=== PATIENT | female | born 1960 ===

== ENCOUNTER 2017-06-05 07:06 | Inpatient (IN) | payer BC ==
[2017-06-05 07:07] VITALS: BMI 28.7
[2017-06-05] MEDS ORDERED: Sodium Chloride 0.9% 1,000 ML IV STA (07:44)
--- NOTE | 2017-06-05 07:48 | ED PDOC ---
HPI: General Adult Time Seen by Provider: 06/05/17 07:14 Chief Complaint (Nursing): High Blood Pressure Chief Complaint (Provider): vertigo History Per: Patient History/Exam Limitations: no limitations Additional Complaint(s): Joy Doyle is a 56 year old female, with a previous medical history of hypertension, who presents to the ED with complaints of 2 episodes of vertigo which occurred this morning while laying flat associated with head pressure and nausea. Patient denies any chest pain, shortness of breath, numbness or tingling. She reports taking her lisinopril and metoprolol this morning. PMD: none provided Past Medical History Reviewed: Historical Data, Nursing Documentation, Vital Signs Vital Signs: Last Vital Signs Temp 97.7 F 06/05/17 07:33 Pulse 81 06/05/17 07:33 Resp 18 06/05/17 07:33 BP 167/90 H 06/05/17 07:33 Pulse Ox 98 06/05/17 14:38 - Medical History PMH: Depression, HTN - Family History Family History: States: Unknown Family Hx - Home Medications Home Medications: Ambulatory Orders Medication Instructions Recorded Lisinopril/Hydrochlorothiazide 1 tab PO DAILY 05/12/14 [Lisinopril-Hctz 20-25 mg Tab] Metoprolol Succinate [Toprol XL] 25 mg PO DAILY 06/05/17 - Allergies Allergies/Adverse Reactions: Allergies Allergy/AdvReac Type Severity Reaction Status Date / Time No Known Allergies Allergy Verified 01/24/17 03:30 Review of Systems ROS Statement: Except As Marked, All Systems Reviewed And Found Negative Cardiovascular: Negative for: Chest Pain Respiratory: Negative for: Shortness of Breath Gastrointestinal: Positive for: Nausea Neurological: Positive for: Dizziness. Negative for: Numbness Physical Exam - Reviewed Nursing Documentation Reviewed: Yes Vital Signs Reviewed: Yes - Physical Exam Appears: Positive for: Well, Non-toxic, No Acute Distress Head Exam: Positive for: ATRAUMATIC, NORMAL INSPECTION, NORMOCEPHALIC Skin: Positive for: Normal Color, Warm, Dry Eye Exam: Positive for: Normal appearance, EOMI, PERRL. Negative for: Nystagmus ENT: Positive for: Normal ENT Inspection Neck: Positive for: Normal, Painless ROM, Supple Cardiovascular/Chest: Positive for: Regular Rate, Rhythm Respiratory: Positive for: CNT, Normal Breath Sounds Gastrointestinal/Abdominal: Positive for: Normal Exam, Bowel Sounds, Soft. Negative for: Tenderness Back: Positive for: Normal Inspection Extremity: Positive for: Normal ROM Neurologic/Psych: Positive for: Alert, material handling technician II-XII (intact), Oriented, Other ( finger to nose intact ). Negative for: Motor/Sensory Deficits - Laboratory Results Result Diagrams: 06/05/17 08:15 06/05/17 11:31 - ECG Interpretation Of ECG: NSR @ 63, no ST-T changes. O2 Sat by Pulse Oximetry: 98 (RA) Pulse Ox Interpretation: Normal - Physician Consult Information Time Consulting Physican Contacted: 11:50 Physician Contacted: Horacio Shirley Outcome Of Conversation: Case discussed, agrees with CTA head, admit to r/o ischemic event. Medical Decision Making Medical Decision Making: Initial Impression: Vertigo Initial Plan: * CT head w/o contrast * EKG * labs * urine dipstick * urinalysis * antivert 50 mg PO * IV NS 1000 ml at 125 ml/hr * zofran 4 mg IV * accu-check * reevaluation Time: 9:45 CT Head FINDINGS: HEMORRHAGE: No intracranial hemorrhage. BRAIN: No mass effect or edema. No atrophy or chronic microvascular ischemic changes. VENTRICLES: Unremarkable. No hydrocephalus. CALVARIUM: Unremarkable. PARANASAL SINUSES: Unremarkable as visualized. No significant inflammatory changes. MASTOID AIR CELLS: Unremarkable as visualized. No inflammatory changes. OTHER FINDINGS: None. IMPRESSION: Normal CT of the Head. Time: 14:10 CT CHEST FINDINGS: INTERNAL CEREBRAL ARTERIES: Unremarkable. The skull base, petrous, cavernous and supraclinoid segments are bilaterally widely patient. ANTERIOR CEREBRAL ARTERIES: Unremarkable. A1 and A2 segments are widely patent. Smaller distal branches unremarkable, as visualized. MIDDLE CEREBRAL ARTERIES: Unremarkable. M1 and M2 segments are widely patent. Perisylvian branches grossly symmetric. POSTERIOR CIRCULATION: Basilar Artery: Unremarkable. Distal Vertebral Arteries: Unremarkable. Posterior Cerebral Arteries: Unremarkable. Posterior Inferior Cerebellar Arteries: Neck clearly identified in this exam. ANEURYSM/ VASCULAR MALFORMATIONS: None. OTHER FINDINGS: None. IMPRESSION: Unremarkable CT Angiography of the Brain. Scribe Attestation: Documented by Gina De La O, acting as a scribe for Gina Neal MD. Provider Scribe Attestation: All medical record entries made by the Scribe were at my direction and personally dictated by me. I have reviewed the chart and agree that the record accurately reflects my personal performance of the history, physical exam, medical decision making, and the department course for this patient. I have also personally directed, reviewed, and agree with the discharge instructions and disposition. Disposition - Clinical Impression Clinical Impression: Vertigo - Patient ED Disposition Is Patient to be Admitted: Yes - Disposition Disposition Time: 14:24 Condition: STABLE - Pt Status Changed To: Hospital Disposition Of: Inpatient - Admit Certification Admit to Inpatient:: After my assessment, the patient will require hospitalization for at least two midnights. This is because of the severity of symptoms shown, intensity of services needed, and/or the medical risk in this patient being treated as an outpatient. - POA Present On Arrival: None
[2017-06-05 08:25] LABS: BASO # 0.1 K/uL (0.0-0.2); BASO % 0.7 % (0.0-2.0); EOS # 0.2 K/uL (0.0-0.7); EOS % 2.2 % (0.0-4.0); HEMATOCRIT 39.7 % (34.0-47.0); LYMPH # 2.6 K/uL (1.0-4.3); LYMPH % 30.8 % (20.0-40.0); MEAN CELL VOLUME 88.1 fl (81.0-99.0); MEAN CORPUSCULAR HEMOGLOBIN 29.7 pg (27.0-31.0); MEAN CORPUSCULAR HGB CONC 33.7 g/dL (33.0-37.0); MEAN PLATELET VOLUME 8.3 fl (7.2-11.7); MONO # 0.6 K/uL (0.0-0.8); MONO % 6.9 % (0.0-10.0); NEUT # 5.1 K/uL (1.8-7.0); NEUT % 59.4 % (50.0-75.0); NRBC % 0.2 % (0.0-0.0); RED CELL DISTRIBUTION WIDTH 13.3 % (11.5-14.5); WHITE BLOOD COUNT 8.5 K/uL (4.8-10.8)
[2017-06-05 08:39] LABS: RBC URINE 22 /hpf (0-3); URINE BACTERIA OCC (<OCC); URINE BILIRUBIN NEGATIVE (NEGATIVE); URINE BLOOD MODERATE (NEGATIVE); URINE COLOR YELLOW (YELLOW); URINE GLUCOSE (UA) NEG (Normal); URINE KETONE NEGATIVE (NEGATIVE); URINE LEUKOCYTE ESTERASE NEG Leu/uL (Negative); URINE PROTEIN 100 mg/dL (NEGATIVE); URINE UROBILINOGEN 0.2-1.0 mg/dL (0.2-1.0); WBC URINE 3 /hpf (0-5)
--- NOTE | 2017-06-05 09:46 | CT ---
PROCEDURE: CT HEAD WITHOUT CONTRAST. HISTORY: Vertigo COMPARISON: None available. TECHNIQUE: Axial computed tomography images were obtained through the head/brain without intravenous contrast. Radiation dose: Total exam DLP = 864.44 mGy-cm. This CT exam was performed using one or more of the following dose reduction techniques: Automated exposure control, adjustment of the mA and/or kV according to patient size, and/or use of iterative reconstruction technique. FINDINGS: HEMORRHAGE: No intracranial hemorrhage. BRAIN: No mass effect or edema. No atrophy or chronic microvascular ischemic changes. VENTRICLES: Unremarkable. No hydrocephalus. CALVARIUM: Unremarkable. PARANASAL SINUSES: Unremarkable as visualized. No significant inflammatory changes. MASTOID AIR CELLS: Unremarkable as visualized. No inflammatory changes. OTHER FINDINGS: None. IMPRESSION: Normal CT of the Head.
[2017-06-05 12:44] LABS: ALB/GLOB RATIO 1.3 (1.0-2.1); ALKALINE PHOSPHATASE 74 U/L (38-126); ALT/SGPT 25 U/L (9-52); AST/SGOT 24 U/L (14-36); BILIRUBIN,TOTAL 0.6 mg/dl (0.2-1.3); BLOOD UREA NITROGEN 11 mg/dl (7-17); CALCIUM 9.6 mg/dL (8.4-10.2); CHLORIDE 102 mmol/L (98-107); GFR AFRICAN-AMERICAN > 60; GLUCOSE,RANDOM 90 mg/dL (65-105); POTASSIUM 3.7 MMOL/L (3.6-5.0); SODIUM 143 mmol/l (132-148); TOTAL PROTEIN 7.7 G/DL (6.3-8.2)
[2017-06-05] MEDS ORDERED: Iodixanol 320 MG/ML 100 ML BOTTLE IV ONE (13:02)
[2017-06-05] MEDS ORDERED: Sodium Chloride 0.9% 50 ML IV ONE (13:02)
[2017-06-05 13:14] LABS: CARBON DIOXIDE 24 mmol/L (22-30)
--- NOTE | 2017-06-05 14:12 | CT ---
PROCEDURE: CT Angiography of the Brain. HISTORY: New onset vertigo COMPARISON: None available. TECHNIQUE: CT angiography of the intracranial arteries was performed. Coronal and sagittal maximum intensity projection reformated images were generated. Contrast dose: Visipaque 320, 90 cc. Total radiation dose DLP: 1086.[address] exam was performed using one or more of the following dose reduction techniques: Automated exposure control, adjustment of the mA and/or kV according to patient size, and/or use of iterative reconstruction technique. FINDINGS: INTERNAL CEREBRAL ARTERIES: Unremarkable. The skull base, petrous, cavernous and supraclinoid segments are bilaterally widely patient. ANTERIOR CEREBRAL ARTERIES: Unremarkable. A1 and A2 segments are widely patent. Smaller distal branches unremarkable, as visualized. MIDDLE CEREBRAL ARTERIES: Unremarkable. M1 and M2 segments are widely patent. Perisylvian branches grossly symmetric. POSTERIOR CIRCULATION: Basilar Artery: Unremarkable. Distal Vertebral Arteries: Unremarkable. Posterior Cerebral Arteries: Unremarkable. Posterior Inferior Cerebellar Arteries: Neck clearly identified in this exam. ANEURYSM/ VASCULAR MALFORMATIONS: None. OTHER FINDINGS: None. IMPRESSION: Unremarkable CT Angiography of the Brain.
--- NOTE | 2017-06-05 15:54 | CP.PCM.CON ---
History of Present Illness - History of Present Illness History of Present Illness: Mrs. Doyle is a 56-year-old woman with a past medical history of hypertension , who woke up this morning with a feeling of nausea and noted that the room was spinning. She felt "dizzy" and had neck pain at the base of her skull in the occipital region. The neck pain and headache persisted and it felt severe with a throbbing/pulsating quality. She presented to the ED, where her initial BP was 167/90 mm Hg. Currently, the patient still feels dizzy despite fluids and meclizine. She states that the dizziness is worse when she looks to the right. Review of Systems - Review of Systems All systems: reviewed and no additional remarkable complaints except Past Patient History - Past Social History Smoking Status: Never Smoked - CARDIAC Hx Hypertension: Yes - MUSCULOSKELETAL/RHEUMATOLOGICAL Hx Falls: No - PSYCHIATRIC Hx Depression: Yes - SURGICAL HISTORY Hx Surgeries: Yes Hx Tubal Ligation: Yes - ANESTHESIA Hx Anesthesia: Yes Meds Allergies/Adverse Reactions: Allergies Allergy/AdvReac Type Severity Reaction Status Date / Time No Known Allergies Allergy Verified 01/24/17 03:30 Physical Exam - Constitutional Appears: Well - Head Exam Head Exam: ATRAUMATIC, NORMAL INSPECTION, NORMOCEPHALIC - Eye Exam Eye Exam: EOMI, Normal appearance, PERRL - ENT Exam ENT Exam: Mucous Membranes Moist, Normal Exam - Neck Exam Neck exam: Positive for: Tenderness Additional comments: Point tenderness at the right occipital region above the cervical portion to the right. - Respiratory Exam Respiratory Exam: Clear to Auscultation Bilateral, NORMAL BREATHING PATTERN - Cardiovascular Exam Cardiovascular Exam: REGULAR RHYTHM, +S1, +S2 - GI/Abdominal Exam GI & Abdominal Exam: Normal Bowel Sounds, Soft. absent: Tenderness - Rectal Exam Rectal Exam: Deferred - Extremities Exam Extremities exam: Positive for: normal inspection - Back Exam Back exam: NORMAL INSPECTION - Neurological Exam Neurological exam: Alert, CN II-XII Intact, Normal Gait, Oriented x3, Reflexes Normal - Expanded Neurological Exam Expanded Cranial nerves: EOM's Intact: Normal, Gag Reflex: Normal, Nystagmus: Normal Ataxia: No Cerebellar Function: Finger to Nose: Normal, Heel to Casey: Normal Upper motor neuron: Pronator Drift: Normal Sensory exam: Lower Extremity Light Touch: Normal, Lower Extremity Pin Prick: Normal, Upper Extremity Light Touch: Normal, Upper Extremity Pin Prick: Normal Neuro motor strength exam: Left Upper Extremity: 5, Right Upper Extremity: 5, Left Lower Extremity: 5, Right Lower Extremity: 5 DTR: Achilles Tendon Left: 2+, Achilles Tendon Right: 2+, Bicep Left: 2+, Bicep Right: 2+, Brachioradialis Left: 2+, Brachioradialis Right: 2+, Patellar Left: 2 +, Patellar Right: 2+, Tricep Left: 2+, Tricep Right: 2+ - Psychiatric Exam Psychiatric exam: Normal Affect, Normal Mood - Skin Skin Exam: Dry, Intact, Normal Color, Warm Results - Vital Signs Recent Vital Signs: Last Vital Signs Temp 97.7 F 06/05/17 07:33 Pulse 81 06/05/17 07:33 Resp 18 06/05/17 07:33 BP 167/90 H 06/05/17 07:33 Pulse Ox 98 06/05/17 14:38 - Labs Result Diagrams: 06/05/17 08:15 06/05/17 11:31 Labs: Laboratory Results - last 24 hr 06/05/17 06/05/17 06/05/17 08:15 08:15 11:31 WBC 8.5 RBC 4.50 Hgb 13.4 Hct 39.7 MCV 88.1 MCH 29.7 MCHC 33.7 RDW 13.3 Plt Count 295 MPV 8.3 Neut % (Auto) 59.4 Lymph % (Auto) 30.8 Hall % (Auto) 6.9 Eos % (Auto) 2.2 Baso % (Auto) 0.7 Neut # 5.1 Lymph # 2.6 Hall # 0.6 Eos # 0.2 Baso # 0.1 Sodium 143 Potassium 3.7 Chloride 102 Carbon Dioxide 24 Anion Gap 21 H BUN 11 Creatinine 0.5 L Est GFR ( Amer) > 60 Est GFR (Non-Af Amer) > 60 Random Glucose 90 Calcium 9.6 Total Bilirubin 0.6 AST 24 ALT 25 Alkaline Phosphatase 74 Total Protein 7.7 Albumin 4.4 Globulin 3.3 Albumin/Globulin Ratio 1.3 Urine Color Yellow Urine Clarity Cloudy Urine pH 7.0 Ur Specific [place] 1.021 Urine Protein 100 Urine Glucose (UA) Neg Urine Ketones Negative Urine Blood Moderate Urine Nitrate Negative Urine Bilirubin Negative Urine Urobilinogen 0.2-1.0 Ur Leukocyte Esterase Neg Urine RBC (Auto) 22 H Urine Microscopic WBC 3 Ur Squamous Epith Cells 5 Urine Bacteria Occ H - Imaging and Cardiology CT scan - head Status: Image reviewed by me (No acute findings on CT head and CTA of the head is normal. ) Assessment & Plan (1) Vertigo Assessment and Plan: With the neck pain and posterior circulation symptoms, we should rule out a vertebral artery dissection. The patient's symptoms were acute and are persistent. I recommend admission for further work-up with an MRI of the brain , MRA of the head/neck, and continuous telemetry monitoring. I recommend aspirin 81 mg, and check lipid panel, HbA1c, B12, folate, TSH. Depending on the results of the MRI, we may proceed with echocardiogram or remainder of TIA/Stroke work-up. For now, fluids with NS at 100 ml/hr and continuing meclizine/zofran are recommended. May allow permissive hypertension for the next 24-36 hrs to ensure cerebral perfusion (do not treat unless BP is > 220/110 mm Hg) Thank you. Status: Acute Priority: High
[2017-06-05] MEDS ORDERED: Gadodiamide 287 MG/ML VIAL (15ML) IV ONE (16:45)
[2017-06-05] MEDS ORDERED: Sodium Chloride 0.9% 100 ML ONE (16:53)
--- NOTE | 2017-06-05 18:48 | MRI ---
PROCEDURE: MRI BRAIN WITHOUT CONTRAST HISTORY: vertigo COMPARISON: Comparison is made to the previous CTA done on the same day. TECHNIQUE: Multiplanar, multisequence MR images of the brain were obtained without intravenous contrast enhancement. FINDINGS: HEMORRHAGE: None DWI: No evidence of an acute or early subacute infarction. BRAIN PARENCHYMA: No mass effect or edema. No atrophy or chronic microvascular ischemic changes. VENTRICLES: Unremarkable. No hydrocephalus. CRANIUM: Unremarkable. ORBITS: Grossly unremarkable. PARANASAL SINUSES/MASTOIDS: Mucosal retention cyst versus polyp at the left maxillary sinus measures 1.7 x 1.8 centimeter. Mild sinuses mucosal thickening noted without evidence of air-fluid level. VASCULAR SYSTEM: Skull base flow voids intact. OTHER FINDINGS: None. IMPRESSION: No evidence of acute intracranial hemorrhage intracranial collection mass effect or midline shift. No evidence of acute pathology in the brain.
--- NOTE | 2017-06-05 18:49 | MRI ---
PROCEDURE: MR Angiography of the neck with and without contrast HISTORY: vertigo COMPARISON: None available. TECHNIQUE: Contrast enhanced and [id number] angiography of the neck was performed. Rotating 3D maximum intensity projection images of the cervical carotid and vertebral arteries were generated. FINDINGS: RIGHT CAROTID ARTERIES: Common Carotid Artery: Normal. Carotid Bifurcation: Normal. Internal Carotid Artery:Normal. External Carotid Artery (proximal branches): Normal. LEFT CAROTID ARTERIES: Common Carotid Artery: Normal. Carotid Bifurcation: Normal. Internal Carotid Artery:Normal. External Carotid Artery (proximal branches): Normal. VERTEBRAL ARTERIES: Right Vertebral Artery: The right vertebral artery is smaller than the left. Left Vertebral Artery: Normal. OTHER FINDINGS: Mucosal retention cyst versus polyp at the left maxillary sinus. IMPRESSION: The right vertebral artery is smaller than the left. Otherwise unremarkable MRA of the neck.
--- NOTE | 2017-06-05 18:51 | MRI ---
PROCEDURE: Magnetic Resonance Angiography Brain HISTORY: vertigo COMPARISON: None available. TECHNIQUE: 3D time of flight MR angiography of the intracranial arteries was performed. Rotating maximum intensity projection images were generated. FINDINGS: INTERNAL CAROTID ARTERIES: Unremarkable. The skull base, petrous, cavernous and supraclinoid segments are bilaterally widely patient. ANTERIOR CEREBRAL ARTERIES: Unremarkable. A1 and A2 segments are widely patent. Smaller distal branches unremarkable, as visualized. MIDDLE CEREBRAL ARTERIES: Unremarkable. M1 and M2 segments are widely patent. Perisylvian branches grossly symmetric. POSTERIOR CIRCULATION: Basilar Artery: Unremarkable. Distal Vertebral Arteries: The distal right vertebral artery is small in size. Posterior Cerebral Arteries: Unremarkable. Posterior Inferior Cerebellar Arteries: Unremarkable. ANEURYSM/ VASCULAR MALFORMATIONS: None. OTHER FINDINGS: None. IMPRESSION: Unremarkable MR angiography of the brain.
[2017-06-05] MEDS ORDERED: Pneumococcal 23-Valent Vaccine IM ONE (20:37)
[2017-06-06 06:15] LABS: HEMATOCRIT 40.2 % (34.0-47.0); MEAN CELL VOLUME 90.2 fl (81.0-99.0); MEAN CORPUSCULAR HEMOGLOBIN 29.2 pg (27.0-31.0); MEAN CORPUSCULAR HGB CONC 32.4 g/dL (33.0-37.0); RED CELL DISTRIBUTION WIDTH 13.6 % (11.5-14.5); WHITE BLOOD COUNT 8.6 K/uL (4.8-10.8)
[2017-06-06 06:35] LABS: ALB/GLOB RATIO 1.3 (1.0-2.1); ALKALINE PHOSPHATASE 68 U/L (38-126); ALT/SGPT 25 U/L (9-52); AST/SGOT 26 U/L (14-36); BILIRUBIN,TOTAL 0.5 mg/dl (0.2-1.3); BLOOD UREA NITROGEN 15 mg/dl (7-17); CALCIUM 9.5 mg/dL (8.4-10.2); CARBON DIOXIDE 27 mmol/L (22-30); CHLORIDE 105 mmol/L (98-107); CHOLESTEROL 181 mg/dL (0-199); GFR AFRICAN-AMERICAN > 60; GLUCOSE,RANDOM 89 mg/dL (65-105); POTASSIUM 4.7 MMOL/L (3.6-5.0); SODIUM 145 mmol/l (132-148); TOTAL PROTEIN 7.1 G/DL (6.3-8.2)
[2017-06-06 06:45] LABS: T4 10.4 ug/dl (5.5-11.0)
[2017-06-06 06:58] LABS: THYROID STIMULATING HORMONE 0.82 mIU/ML (0.46-4.68)
[2017-06-06] MEDS: Metoprolol Succinate 25 mg XL Tab PO SCH (09:54)
--- NOTE | 2017-06-06 10:25 | CP.PCM.PN ---
Subjective - Date & Time of Evaluation Date of Evaluation: 06/06/17 Time of Evaluation: 10:23 - Subjective Subjective: Ms. Doyle was seen and examined at the bedside. She denies vertigo when ambulating, but complains of vertigo when moving her head. She denies any blurry vision, headache, lightheadedness, weakness, or gait instability. She is not in any acute distress. There was no untoward events overnight. Objective - Vital Signs/Intake and Output Vital Signs (last 24 hours): Temp Pulse Resp BP Pulse Ox 97.4 F L 69 18 143/74 96 06/06/17 08:00 06/06/17 09:54 06/06/17 08:00 06/06/17 09:54 06/06/17 08:00 - Medications Medications: Current Medications Aspirin (Ecotrin) 81 mg PO DAILY [facility] Last Admin: 06/06/17 09:56 Dose: 81 mg Diazepam (Valium) 2 mg PO BID [facility] Meclizine HCl (Antivert) 25 mg PO TID [facility] Last Admin: 06/06/17 09:54 Dose: 25 mg Metoprolol Succinate (Toprol Xl) 25 mg PO DAILY [facility] Last Admin: 06/06/17 09:54 Dose: 25 mg Ondansetron HCl (Zofran Inj) 4 mg IVP Q4 PRN PRN Reason: Nausea/Vomiting - Labs Labs: 06/06/17 05:50 06/06/17 05:50 - Constitutional Appears: Well - Head Exam Head Exam: ATRAUMATIC, NORMAL INSPECTION, NORMOCEPHALIC - Neurological Exam Neurological Exam: Alert, Awake, CN II-XII Intact, Oriented x3 Neuro motor strength exam: Left Upper Extremity: 5, Right Upper Extremity: 5, Left Lower Extremity: 5, Right Lower Extremity: 5 Additional comments: She complains of vertigo when moving her head side to side, but no nystagmus, facial palsy, equal sensation noted. Assessment and Plan (1) Vertigo Assessment & Plan: Case discussed with Dr. Shirley, will start with Valium 2 mg PO BID and vestibular rehabilitation for benign positional vertigo. For PT eval and treat. Awaiting result of the echocardiogram. Status: Acute
--- NOTE | 2017-06-06 11:02 | CARD ---
APPROVED REPORT EKG Measurement Heart [id number] ID [id number] <Conclusion> Normal sinus rhythm Normal ECG
--- NOTE | 2017-06-06 13:22 | CP.PCM.HP ---
History of Present Illness - History of Present Illness History of Present Illness: CC: Vertigo. 56 y/o F, came to [facility], to be evaluated for Vertigo in AM DOA with no relief. As per PT, She wake up in DOA having 2 episodes of vertigo associated to nausea and head pressure. Worsening symptom: Neck pain, Hx HTN. BP 167/90. Aggravated factor: Worsening dizziness with head movements. Pt denied: Fever, chills, v/d, abdominal pain, SOB, cough, CP, palpitation, numbness, LOC, fall, sick contact, recent travel. PMHx: HTN, Depression, Hx CP and Epistasis. EKG shows: Normal sinus rhythm. Head CT: Normal. CT Angiography: Unremarkable. Brain MRI: No mass or hemorrhage. Head MRI: Unremarkable. Carotid U-S: R-L ICA degree of stenosis less than 50%. Thyroid nodules incompletely characterized and visualized. Present on Admission - Present on Admission Any Indicators Present on Admission: No Review of Systems - Constitutional Constitutional: Headache - EENT Eyes: Other (negative) Ears: Other (negative) Nose/Mouth/Throat: Other (negative) - Cardiovascular Cardiovascular: Other (negative) - Respiratory Respiratory: Other (negative) - Gastrointestinal Gastrointestinal: Nausea - Genitourinary Genitourinary: Other (negative) - Musculoskeletal Musculoskeletal: Neck Pain - Integumentary Integumentary: Other (negative) - Neurological Neurological: Dizziness, Headaches - Psychiatric Psychiatric: Depression - Endocrine Endocrine: Other (negative) - Hematologic/Lymphatic Hematologic: Other (negative) Past Patient History - Past Medical History & Family History Past Medical History?: Yes Pertinent Family History: Strong family Hx for Cardiac disease/[place] - Past Social History Smoking Status: Never Smoked Alcohol: None Drugs: Denies Home Situation {Lives}: Alone - CARDIAC Hx Cardiac Disorders: Yes Hx Hypertension: Yes - PULMONARY Hx Respiratory Disorders: No - NEUROLOGICAL Hx Neurological Disorder: No - HEENT Hx HEENT Problems: Yes Hx Epistaxis: Yes - RENAL Hx Chronic Kidney Disease: No - ENDOCRINE/METABOLIC Hx Endocrine Disorders: No - HEMATOLOGICAL/ONCOLOGICAL Hx Blood Disorders: No Hx AIDS: No Hx Human Immunodeficiency Virus (HIV): No - INTEGUMENTARY Hx Dermatological Problems: No - MUSCULOSKELETAL/RHEUMATOLOGICAL Hx Musculoskeletal Disorders: No Hx Falls: No - GASTROINTESTINAL Hx Gastrointestinal Disorders: No Hx Bowel Surgery: No - GENITOURINARY/GYNECOLOGICAL Hx Genitourinary Disorders: Yes Hx Reproductive Disorders: Yes (uterine fibroids) - PSYCHIATRIC Hx Psychophysiologic Disorder: Yes Hx Depression: Yes Hx Substance Use: No - SURGICAL HISTORY Hx Surgeries: Yes Hx Tubal Ligation: Yes - ANESTHESIA Hx Anesthesia: Yes Hx Anesthesia Reactions: No Meds Home Medications: Home Medication List Medication Instructions Recorded Confirmed Type Meclizine [Meclizine*] 25 mg PO TID #60 tab 06/07/17 Rx diaZEpam [Valium] 2 mg PO BID #10 tab 06/07/17 Rx Allergies/Adverse Reactions: Allergies Allergy/AdvReac Type Severity Reaction Status Date / Time No Known Allergies Allergy Verified 01/24/17 03:30 Physical Exam - Constitutional Appears: No Acute Distress - Head Exam Head Exam: NORMAL INSPECTION - Eye Exam Eye Exam: PERRL - ENT Exam ENT Exam: Normal Exam - Neck Exam Neck exam: Positive for: Tenderness (R occipital region.) - Respiratory Exam Respiratory Exam: Clear to Auscultation Bilateral - Cardiovascular Exam Cardiovascular Exam: REGULAR RHYTHM - GI/Abdominal Exam GI & Abdominal Exam: Normal Bowel Sounds, Soft - Extremities Exam Extremities exam: Positive for: normal inspection - Back Exam Back exam: NORMAL INSPECTION - Neurological Exam Neurological exam: Alert, Oriented x3 - Psychiatric Exam Psychiatric exam: Normal Affect, Normal Mood - Skin Skin Exam: Normal Color, Warm Results - Vital Signs Recent Vital Signs: Last Vital Signs Temp 98.5 F 06/06/17 11:51 Pulse 69 06/06/17 11:51 Resp 18 06/06/17 11:51 BP 148/86 06/06/17 11:51 Pulse Ox 95 06/06/17 11:51 reviewed J.PMeghana - Labs Result Diagrams: 06/06/17 05:50 06/06/17 05:50 Labs: Laboratory Results - last 24 hr 06/05/17 06/06/17 06/06/17 08:15 05:50 05:50 WBC 8.6 RBC 4.46 Hgb 13.1 Hct 40.2 MCV 90.2 D MCH 29.2 MCHC 32.4 L RDW 13.6 Plt Count 278 Sodium 145 Potassium 4.7 Chloride 105 Carbon Dioxide 27 Anion Gap 17 BUN 15 Creatinine 0.7 Est GFR ( Amer) > 60 Est GFR (Non-Af Amer) > 60 POC Glucose (mg/dL) 114 H Random Glucose 89 Calcium 9.5 Total Bilirubin 0.5 AST 26 ALT 25 Alkaline Phosphatase 68 Total Protein 7.1 Albumin 4.0 Globulin 3.1 Albumin/Globulin Ratio 1.3 Triglycerides 116 Cholesterol 181 LDL Cholesterol Direct 113 HDL Cholesterol 43 Thyroxine (T4) 10.4 TSH 3rd Generation 0.82 reviewed J.P. - EKG Data EKG comments: reviewed J.P. - Imaging and Cardiology Chest x-ray Status: Report reviewed by me (J.P.) MRI - head Status: Report reviewed by me (J.P.) CT scan - head Status: Report reviewed by me (J.P.) Additional comment: Brain MRI, CT Angiography and Carotid U-S reviewed J.P. Assessment & Plan (1) Vertigo Status: Acute Priority: High (2) HTN (hypertension) Status: Chronic Priority: High (3) Neck pain Status: Acute Priority: High (4) Depression Status: Chronic Priority: Medium - Assessment and Plan (Free Text) Plan: F/U Echo and Neck MRI. Continue current Tx, Neurology consult appreciated. - Date & Time Date: 06/06/17 Time: 09:30
--- NOTE | 2017-06-06 13:42 | US ---
PROCEDURE: Duplex ultrasound of the carotid and vertebral arteries. HISTORY: vertigo COMPARISON: None available. TECHNIQUE: Grayscale and duplex Doppler evaluation of the cervical carotid and vertebral arteries were performed. The common carotid, carotid bifurcations and cervical ICA and proximal ECA were evaluated. The vertebral arteries were evaluated for gross patency and direction. FINDINGS: RIGHT CAROTID ARTERIES: Common Carotid Artery: Normal. Maximal flow velocity of 119.4 cm/s. Carotid Bifurcation: Partially calcified heterogeneous plaque in the right carotid bulb extending primarily into the right external carotid artery, to lesser extent right internal carotid artery Internal Carotid Artery:Heterogeneous plaque formation. Maximal flow velocity of 96.3 cm/s. External Carotid Artery (proximal branches): Unremarkable Maximal flow velocity of 94.0 cm/s. ICA/CCA Ratio: 0.8 LEFT CAROTID ARTERIES: Common Carotid Artery: Normal. Maximal flow velocity of 97.8 cm/s. Carotid Bifurcation: Internal Carotid Artery:Heterogeneous plaque formation. Maximal flow velocity of 96.4 cm/s. tortuous ICA External Carotid Artery (proximal branches): Heterogeneous plaque formation Maximal flow velocity of 94.0 cm/s. ICA/CCA Ratio: 1.0 VERTEBRAL ARTERIES: Right Vertebral Artery: Patent. Antegrade flow. Left Vertebral Artery: Patent. Antegrade flow. OTHER FINDINGS: Incidental finding(s): Thyroid nodules incompletely characterized and visualize. Elective thyroid ultrasound advised. IMPRESSION: Right ICA degree of stenosis: Less than 50% Left ICA degree of stenosis: Less than 50% Incomplete Incidental finding(s): Characterization of thyroid nodules. Elective thyroid ultrasound recommended. Reference Internal Carotid Artery (ICA) Peak Systolic Velocity (PSV) for above: 1. Less than 50% stenosis less than 125 cm/s peak systolic velocity 2. 50-69% stenosis 125-230cm/s peak systolic velocity 3. Greater than 70% but less than near occlusion greater than 230 cm/s peak systolic velocity
--- NOTE | 2017-06-06 18:12 | CARD ---
APPROVED REPORT EXAM: Two-dimensional and M-mode echocardiogram with Doppler and color Doppler. Other Information Quality : GoodRhythm : NSR INDICATION Dizziness and Vertigo 2D DIMENSIONS Left Atrium (2D)3.76 (1.6-4.0cm)IVSd1.17 (0.7-1.1cm) Aortic Root (2D)2.43 (2.0-3.7cm)LVDd4.73 (3.9-5.9cm) LVOT Diameter2.12 (1.8-2.4cm)PWd0.86 (0.7-1.1cm) IVSs1.41 (0.8-1.2cm)LVDs3.07 (2.5-4.0cm) FS (%) 35.1 %PWs1.18 (0.8-1.2cm) M-Mode DIMENSIONS Left Atrium (MM)3.59 (2.5-4.0cm)IVSd1.06 (0.7-1.1cm) Aortic Root2.68 (2.2-3.7cm)LVDd5.03 (4.0-5.6cm) Aortic Cusp Exc.2.03 (1.5-2.0cm)PWd0.85 (0.7-1.1cm) IVSs1.47 cmFS (%) 29 % LVDs3.56 (2.0-3.8cm)PWs1.09 cm Mitral Valve MV E Bocwsydr47.8cm/sMV DECEL [id number] A Wflqdkbu85.4cm/s MV HNG15imC/A ratio1.1MVA (PHT)2.82cm2 TDI Lateral E' Peak V10.92cm/sMedial E' Peak V10.51cm/sE/Lateral E'5.9 E/Medial E'6.2 Pulmonary Valve PV Peak Bnwsamaj33.1cm/s Tricuspid Valve TR Peak [id number]/sRAP [id number] Peak Gr.18mmHg [id number] LEFT VENTRICLE The left ventricle is normal in size. There is normal left ventricular wall thickness. The left ventricular function is normal. The left ventricular ejection fraction is - 65%. There is normal LV segmental wall motion. The left ventricular diastolic function is normal. No left ventricle thrombus noted on this study. There is no ventricular septal defect visualized. There is no left ventricular aneurysm. There is no mass noted in the left ventricle. RIGHT VENTRICLE The right ventricle is normal size. There is normal right ventricular wall thickness. The right ventricular systolic function is normal. ATRIA The left atrium size is normal. There is no thrombus suspected in the left atrium. The right atrium size is normal. The interatrial septum is intact with no evidence for an atrial septal defect. AORTIC VALVE The aortic valve is normal in structure and function. No aortic regurgitation is present. There is no aortic valvular stenosis. MITRAL VALVE The mitral valve is normal in structure and function. There is no evidence of mitral valve prolapse. There is no mitral valve stenosis. Mitral regurgitation is mild. TRICUSPID VALVE The tricuspid valve is normal in structure and function. There is trace tricuspid regurgitation. Right ventricular systolic pressure is estimated at 32 mmHg. There is no tricuspid valve prolapse or vegetation. There is no tricuspid valve stenosis. PULMONIC VALVE The pulmonary valve is normal in structure and function. There is trace pulmonic valvular regurgitation. GREAT VESSELS The aortic root is normal in size. The IVC is normal in size and collapses >50% with inspiration. PERICARDIAL EFFUSION The pericardium appears normal. There is no pleural effusion. <Conclusion> The left ventricle is normal in size and wall thickness. The left ventricular function is normal. The left ventricular ejection fraction is - 65%. The left atrium, right ventricle and right atrium are normal in size. The mitral, aortic and tricuspid valves are normal. There is mild mitral regurgitation and trace tricuspid regurgitation.
[2017-06-07 08:08] VITALS: TEMP 98.1; O2SAT 96
[2017-06-07] MEDS: Metoprolol Succinate 25 mg XL Tab PO SCH (09:00)
--- NOTE | 2017-06-07 09:54 | CP.PCM.PN ---
Subjective - Date & Time of Evaluation Date of Evaluation: 06/07/17 Time of Evaluation: 09:52 - Subjective Subjective: Ms. Doyle was seen and examined at the bedside. She denies any pain, vertigo especially with head movement, headache, dizziness, lightheadedness, weakness, or gait instability. There was no untoward events overnight. She is not in any kind of acute distress. Objective - Vital Signs/Intake and Output Vital Signs (last 24 hours): Temp Pulse Resp BP Pulse Ox 98.1 F 66 18 128/80 96 06/07/17 08:08 06/07/17 09:00 06/07/17 08:08 06/07/17 09:00 06/07/17 08:08 - Medications Medications: Current Medications Aspirin (Ecotrin) 81 mg PO DAILY [facility] Last Admin: 06/07/17 08:59 Dose: 81 mg Diazepam (Valium) 2 mg PO BID [facility] Last Admin: 06/07/17 09:04 Dose: 2 mg Meclizine HCl (Antivert) 25 mg PO TID [facility] Last Admin: 06/07/17 08:59 Dose: 25 mg Metoprolol Succinate (Toprol Xl) 25 mg PO DAILY [facility] Last Admin: 06/07/17 09:00 Dose: 25 mg Ondansetron HCl (Zofran Inj) 4 mg IVP Q4 PRN PRN Reason: Nausea/Vomiting - Labs Labs: 06/06/17 05:50 06/06/17 05:50 - Constitutional Appears: Well - Head Exam Head Exam: ATRAUMATIC, NORMAL INSPECTION, NORMOCEPHALIC - Neurological Exam Neurological Exam: Alert, Awake, CN II-XII Intact, Normal Gait, Oriented x3 Neuro motor strength exam: Left Upper Extremity: 5, Right Upper Extremity: 5, Left Lower Extremity: 5, Right Lower Extremity: 5 Additional comments: Neurologically improved from previous examination, denies any vertigo. Ambulating well. Assessment and Plan (1) Vertigo Assessment & Plan: Case discussed with Dr. Shirley, continue valium 2 mg PO BID and physical therapy for her BPPV. Continue medical regimen. Status: Acute
[2017-06-07 12:18] VITALS: BP 129/75; PULSE 72; RESP 20
--- NOTE | 2017-06-07 16:15 | CP.PCM.PN ---
Subjective - Date & Time of Evaluation Date of Evaluation: 06/07/17 Time of Evaluation: 09:50 - Subjective Subjective: F/U Vertigo. Pt doing well, with no A/D, no vertigo, no nausea. Objective - Vital Signs/Intake and Output Vital Signs (last 24 hours): Temp Pulse Resp BP Pulse Ox 98.1 F 72 20 129/75 96 06/07/17 12:18 06/07/17 12:18 06/07/17 12:18 06/07/17 12:18 06/07/17 12:18 Intake and Output: 06/07/17 06/07/17 06:59 18:59 Intake Total 1000 Balance 1000 - Medications Medications: Current Medications Aspirin (Ecotrin) 81 mg PO DAILY [facility] Last Admin: 06/07/17 08:59 Dose: 81 mg Diazepam (Valium) 2 mg PO BID [facility] Last Admin: 06/07/17 09:04 Dose: 2 mg Meclizine HCl (Antivert) 25 mg PO TID [facility] Last Admin: 06/07/17 14:18 Dose: 25 mg Metoprolol Succinate (Toprol Xl) 25 mg PO DAILY [facility] Last Admin: 06/07/17 09:00 Dose: 25 mg Ondansetron HCl (Zofran Inj) 4 mg IVP Q4 PRN PRN Reason: Nausea/Vomiting - Labs Labs: 06/06/17 05:50 06/06/17 05:50 - Constitutional Appears: No Acute Distress - Head Exam Head Exam: NORMAL INSPECTION - Eye Exam Eye Exam: PERRL - ENT Exam ENT Exam: Normal Exam - Neck Exam Neck Exam: Normal Inspection - Respiratory Exam Respiratory Exam: Clear to Ausculation Bilateral - Cardiovascular Exam Cardiovascular Exam: REGULAR RHYTHM - GI/Abdominal Exam GI & Abdominal Exam: Soft, Normal Bowel Sounds - Extremities Exam Extremities Exam: Normal Inspection - Back Exam Back Exam: NORMAL INSPECTION - Neurological Exam Neurological Exam: Alert, Oriented x3. absent: Motor Sensory Deficit - Psychiatric Exam Psychiatric exam: Normal Mood - Skin Skin Exam: Warm Assessment and Plan (1) Vertigo Status: Acute (2) HTN (hypertension) Status: Chronic (3) Neck pain Status: Acute (4) Depression Status: Chronic - Assessment and Plan (Free Text) Plan: Pt improved and stable to be discharged, see instruction medication sheet, f/u PMD in one week, call Neurology science consultant for f/u appt.
== END 2017-06-07 16:11 | disposition home or self-care (01) | DRG 149 ==
LOC: H.ER 07:06 → H.EROBSV 11:23 → H.ERHOLD 14:24 → OBSVTOIN 14:24 → H.TEL 20:21
PROVIDERS: ADMIT Internal Medicine Pulmonary Disease; ATTEND Internal Medicine Pulmonary Disease
PROC: 3E0234Z Introduction of Serum, Toxoid and Vaccine into Muscle, Percutaneous Approach (ICD-10-PCS; principal; 2017-06-05)
DX: H81.10 Benign paroxysmal vertigo, unspecified ear (principal); I10 Essential (primary) hypertension; F32.9 Major depressive disorder, single episode, unspecified; M54.2 Cervicalgia; Z23 Encounter for immunization